=== PATIENT | female | born 1960 | race Caucasian/White ===

== ENCOUNTER 2019-09-05 15:03 | Emergency (ER) | payer MEDICAID ==
[~2019-09-05] VITALS: Ht 157.5 cm; Wt 77.1 kg
[2019-09-05 15:16] VITALS: BP_SYST 153
[2019-09-05] MEDS ORDERED: KETOROLAC TROMETHAMINE 60 MG/2 ML VIAL IM ONE (15:30)
[2019-09-05 16:01] VITALS: BP_SYST 153
== END 2019-09-05 16:00 | disposition home or self-care (01) ==
LOC: SED 15:03
DX: M06.9 Rheumatoid arthritis, unspecified (principal); M25.571 Pain in right ankle and joints of right foot; I10 Essential (primary) hypertension; Z86.73 Personal history of transient ischemic attack (TIA), and cerebral infarction without residual deficits
CPT/HCPCS: 96372; 99283; J1885

== ENCOUNTER 2020-04-12 17:44 | Inpatient (IN) | payer MEDICAID, SELFPAY ==
[~2020-04-12] VITALS: Ht 162.6 cm; Wt 91.2 kg
[~2020-04-12 17:44] MED LIST: ACET-73 PO; AMIO200T6 PO; ASPI-1393 PO; LIP20 PO; METO50TA7 PO; NAPR-690 PO; [UNRECOGNIZED DRUG - CODE] PO
[2020-04-12 17:56] VITALS: BP_SYST 149
--- NOTE | 2020-04-12 18:00 | NUR ---
SENT TO NO BEDS
--- NOTE | 2020-04-12 18:55 | NUR ---
AMBULATED TO BED 4
--- NOTE | 2020-04-12 19:20 | NUR ---
Patient came to ER with family. C/O shortness of breath x today. Patient states "had headache and shortness of breath today afternoon." Patient discharged from hospital last Sunday from same symptoms and low potassium.
--- NOTE | 2020-04-12 19:29 | NUR ---
X-ray at bedside.
--- NOTE | 2020-04-12 19:39 | NUR ---
ER at bedside examining patient.
[2020-04-12] MEDS ORDERED: ASPIRIN 81 MG TAB.CHEW PO ONE (19:45)
--- NOTE | 2020-04-12 19:48 | NUR ---
Blood for labwork drawn from [facility]. Patient tolerated well.
--- NOTE | 2020-04-12 19:56 | NUR ---
Swabs Covid-19 Rapid and PCR and send to lab.
[2020-04-12 19:57] LABS: BASOPHILS # (AUTO) 0.1 K/uL (0.0-0.2); BASOPHILS % (AUTO) 0.9 % (0.0-2.0); EOSINOPHILS # (AUTO) 0.2 K/uL (0.0-0.4); EOSINOPHILS % (AUTO) 2.9 % (0.0-4.0); HEMATOCRIT 37.2 % (36-48); HEMOGLOBIN 12.7 g/dL (12.0-16.0); LYMPHOCYTES # (AUTO) 2.5 K/uL (1.0-5.5); LYMPHOCYTES % (AUTO) 31.5 % (20.5-51.5); MEAN CORPUSCULAR HEMOGLOBIN 32 pg (27-31); MEAN CORPUSCULAR HGB CONC 34 % (32-36); MEAN CORPUSCULAR VOLUME 93 fL (79.0-98.0); MONOCYTES # (AUTO) 0.4 K/uL (0.0-1.0); MONOCYTES % (AUTO) 4.6 % (1.7-9.3); NEUTROPHILS # (AUTO) 4.8 K/uL (1.8-7.7); NEUTROPHILS % (AUTO) 60.1 % (40.0-70.0); PLATELET COUNT (AUTO) 268 K/uL (130-430); RED BLOOD CELL COUNT(AUTO) 4.01 MIL/uL (4.2-6.2); RED CELL DISTRIBUTION WIDTH 14.5 % (9.0-15.0); WHITE BLOOD COUNT (AUTO) 7.9 K/uL (4.8-10.8)
[2020-04-12] MEDS ORDERED: POTA20TA83 PO (20:05)
--- NOTE | 2020-04-12 20:06 | NUR ---
Medication reconciliation completed with information provided by patient. Any prior medication reconciliation on file was reviewed and corrected.
[2020-04-12 20:14] LABS: ANION GAP 12 (5-15); CALCIUM 9.9 mg/dL (8.4-11.0); CHLORIDE 105 mmol/L (98-107); CREATININE 1.46 mg/dL (0.55-1.30); GLUCOSE 105 mg/dL (70-99); POTASSIUM 3.6 mmol/L (3.5-5.1); SODIUM SERUM 142 mmol/L (136-145); UREA NITROGEN, BLOOD 23 mg/dL (8-21)
[2020-04-12 20:18] LABS: GFR AFRICAN AMERICAN 47 mL/min (>90)
[2020-04-12 20:29] LABS: ALANINE AMINOTRANSFERASE 24 U/L (12-78); ALBUMIN 4.2 g/dL (3.4-4.8); ASPARTATE AMINOTRANSFERASE 24 U/L (10-37); FREE T4 (FREE THYROXINE) 0.6 ng/dl (0.8-1.5); LIPASE 223 U/L (73-393); TOTAL BILIRUBIN 0.5 mg/dL (0.0-1.0)
[2020-04-12 20:55] LABS: BILIRUBIN,DIRECT 0.1 mg/dL (0.0-0.3)
[2020-04-12 21:26] LABS: THYROID STIMULATING HORMONE 148.57 uIu/mL (0.36-3.74)
--- NOTE | 2020-04-13 00:05 | NUR ---
# 20 gauge angiocath placed to RAC. Use of asceptic technique. Opsite placed over site. Blood return noted. Blood for lab drawn from site. Flushed with 10 cc of normal saline. No evidence of infiltration noted. Patient tolerated well.
--- NOTE | 2020-04-13 00:14 | NUR ---
Patient transported to radiology via gurney, accompanied by RT.
--- NOTE | 2020-04-13 00:46 | NUR ---
Returned from radiology, back to [facility].
--- NOTE | 2020-04-13 01:35 | NUR ---
Patient resting quietly. No acute distress noted. Vital signs within normal range.
[2020-04-13] MEDS ORDERED: ALBUTEROL SULFATE 0.083% 2.5 MG/3 ML VIAL.NEB INH PRN (04:45)
--- NOTE | 2020-04-13 05:24 | NUR ---
Patient resting quietly. No acute distress noted.
--- NOTE | 2020-04-13 07:21 | NUR ---
REPORT RECEIVED FROM FRANCK AMARO FOR CONTINUING CARE
--- NOTE | 2020-04-13 07:30 | NUR ---
Patient resting quietly. No acute distress noted. Vital signs within normal range.
--- NOTE | 2020-04-13 08:43 | NUR ---
Dietary called for breakfast tray.
[2020-04-13] MEDS: METOPROLOL SUCCINATE 50 MG TAB.SR.24H (TOPROL XL) PO SCH (09:00)
[2020-04-13] MEDS: ACETAMINOPHEN 500 MG TABLET PO SCH ×3 (09:00→20:33)
--- NOTE | 2020-04-13 09:15 | NUR ---
PT EATING BREAKFAST
[2020-04-13] MEDS: AMIODARONE HCL 200 MG TABLET PO SCH (10:20)
[2020-04-13] MEDS: POTASSIUM CHLORIDE 20 MEQ TAB.PRT.SR PO SCH ×2 (10:21→20:32)
[2020-04-13] MEDS: ASPIRIN 81 MG TABLET(ECOTRIN) PO SCH (10:21)
--- NOTE | 2020-04-13 10:45 | NUR ---
PT SLEEPING IN BED
--- NOTE | 2020-04-13 11:58 | NUR ---
Dietary called for lunch tray.
--- NOTE | 2020-04-13 13:04 | NUR ---
Patient will be admitted to care of DR. CABRERA. Admitted to TELE unit. Will go to room 118B. Belongings list completed. Complete and up to date summary report printed. SBAR report to be given at bedside with opportunity for questions.
--- NOTE | 2020-04-13 13:18 | NUR ---
ADMISSION NOTE Received patient from ER via patricia, received report from Chiquis JUÁREZ. Patient admitted with diagnosis of SOB. Patient oriented to hospital routine, call light, toileting and safety-patient verbalized understanding.
[2020-04-13] MEDS: ATORVASTATIN 20 MG TABLET PO SCH (13:57)
[2020-04-13 14:03] VITALS: BP_SYST 116
--- NOTE | 2020-04-13 14:08 | NUR ---
CONSULTATION PAGED/CALLED Reason for Consultation: A-FIB Person Who was Notified: SMITH Consulting Physician: JACKSON Tearer Specialty: CARDIO Ordering Physician: DEBORAH
[2020-04-13 16:11] VITALS: BP_SYST 92
--- NOTE | 2020-04-13 16:40 | NUR ---
RN round: Patient is resting on bed comfortable, no sign of distress.
[2020-04-13 16:50] VITALS: BP_SYST 92
--- NOTE | 2020-04-13 18:26 | NUR ---
Cardio round: Dr. Hodge makes round for the consult.
--- NOTE | 2020-04-13 18:33 | NUR ---
Closing note: Patient is stable no sign of distress. Tolerated Cardiac diet well.
--- NOTE | 2020-04-13 19:30 | NUR ---
OPENING NOTE RECEIVED CARE OF PT AND SBAR REPORT. PT IS AAOX4, RESTING IN BED, NO S/S OF ACUTE DISTRESS, BREATHING IS EVEN AND UNLABORED TO ROOM AIR. SAFETY AND ISOLATION PRECAUTIONS MAINTAINED. WILL MONITOR.
[2020-04-13 20:32] VITALS: BP_SYST 101
[2020-04-14 00:28] VITALS: BP_SYST 96
--- NOTE | 2020-04-14 06:50 | NUR ---
CLOSING NOTE PT RESTING IN BED, NO S/S OF ACUTE DISTRESS, BREATHING IS EVEN AND UNLABORED TO ROOM AIR, SAFETY AND ISOLATION PRECAUTIONS MAINTAINED. WILL ENDORSE TO DAY SHIFT RN.
[2020-04-14] MEDS ORDERED: LEVOTHYROXINE SODIUM 0.05 MG TABLET PO SCH (07:00)
--- NOTE | 2020-04-14 08:00 | NUR ---
OPENING NOTES: PT IS AAOX4, RESTING IN BED, NO S/S OF ACUTE DISTRESS, BREATHING IS EVEN AND UNLABORED TO ROOM AIR. SAFETY AND ISOLATION PRECAUTIONS MAINTAINED. WILL MONITOR.
[2020-04-14 08:35] VITALS: BP_SYST 138
--- NOTE | 2020-04-14 10:00 | NUR ---
MD CABRERA MADE ROUNDS, SEEN AND EXAMINED PATIENT AND DISCUSS ABOUT THE POC. INFORMED COVID RESULT NEGATIVE. MD CLEARY ( [facility]) INFORMED AND RECEIVED D/C ISOLATION PRECAUTION.
[2020-04-14 10:09] LABS: CALCIUM 8.8 mg/dL (8.4-11.0); CREATININE 1.35 mg/dL (0.55-1.30); POTASSIUM 3.7 mmol/L (3.5-5.1)
[2020-04-14] MEDS: AMIODARONE HCL 200 MG TABLET PO SCH (10:10)
[2020-04-14] MEDS: POTASSIUM CHLORIDE 20 MEQ TAB.PRT.SR PO SCH (10:10)
[2020-04-14] MEDS: ASPIRIN 81 MG TABLET(ECOTRIN) PO SCH (10:10)
[2020-04-14] MEDS: ATORVASTATIN 20 MG TABLET PO SCH (10:10)
[2020-04-14] MEDS: ACETAMINOPHEN 500 MG TABLET PO SCH (10:12)
[2020-04-14] MEDS: METOPROLOL SUCCINATE 50 MG TAB.SR.24H (TOPROL XL) PO SCH (10:12)
[2020-04-14 10:15] LABS: ALBUMIN 3.9 g/dL (3.4-4.8); TOTAL BILIRUBIN 0.4 mg/dL (0.0-1.0)
[2020-04-14] MEDS ORDERED: SYN50 PO (11:51)
[2020-04-14 13:18] VITALS: BP_SYST 121
[2020-04-14 13:27] VITALS: BP_SYST 121
--- NOTE | 2020-04-14 14:10 | NUR ---
DISCHARGE APPOINTMENT SW DAUGHTER FARZANEH DODSON WHO DOESNT REMEMBER HER MOTHER'S CLOTHING ROOM SUPERVISOR. PATIENT HAD A PACEMAKER PLACEMENT A YEAR AGO. PATIENT ALSO CANNOT REMEMBER NAME. REFUSED FOR STAFF TO MAKE FOLLOW UP APPOINTMENT. DAUGHTER STATED SHE WILL CALL FOR THE APPOINTMENT AND WILL MAKE SURE WITHIN 7 DAYS
--- NOTE | 2020-04-14 14:18 | NUR ---
D/C Patient Patient given medication reconciliation form and D/C instructions. Exit Care provided. Patient verbalized understanding. MD discussed with patient the results and treatment provided. Ambulatory with steady gait for discharge to home. Patient in stable condition, ID band removed. IV catheter removed, intact and dressing applied, no active bleeding. Patient educated on pain management. All belongings sent with patient.VSS, AFEBRILE. NO OTHER CONCERNED NOTED.
== END 2020-04-14 14:20 | disposition home or self-care (01) | DRG 194 ==
LOC: SED 17:44 → STU 04-13 04:38
PROVIDERS: ADMIT Internal Medicine Hospice and Palliative Medicine; ATTEND Internal Medicine Hospice and Palliative Medicine
DX: I13.0 Hypertensive heart and chronic kidney disease with heart failure and stage 1 through stage 4 chronic kidney disease, or unspecified chronic kidney disease (principal); I50.9 Heart failure, unspecified; I42.9 Cardiomyopathy, unspecified; N17.9 Acute kidney failure, unspecified; E03.9 Hypothyroidism, unspecified; E66.9 Obesity, unspecified; Z20.828 Contact with and (suspected) exposure to other viral communicable diseases; I25.2 Old myocardial infarction; Z95.810 Presence of automatic (implantable) cardiac defibrillator; Z79.1 Long term (current) use of non-steroidal anti-inflammatories (NSAID); Z79.899 Other long term (current) drug therapy; Z86.74 Personal history of sudden cardiac arrest; Z68.34 Body mass index [BMI] 34.0-34.9, adult; Z79.890 Hormone replacement therapy; Z87.891 Personal history of nicotine dependence; Z91.19 Patient's noncompliance with other medical treatment and regimen; N18.30 Chronic kidney disease, stage 3 unspecified
CPT/HCPCS: 36415; 71045; 78580-TC; 80048; 80053; 80076; 83690-TC; 83735-TC; 83880; 84439; 84443-TC; 84484; 85025; 85379; 87081; 93005; 99285; A9540; G0378; U0003

== ENCOUNTER 2020-06-11 13:19 | Emergency (ER) | payer MEDICAID, SELFPAY ==
[~2020-06-11] VITALS: Ht 162.6 cm; Wt 89.4 kg
[~2020-06-11 13:19] MED LIST changes: +POTA20TA83 PO; +SYN50 PO
[2020-06-11 13:20] VITALS: BP_SYST 166
[2020-06-11 13:46] VITALS: BP_SYST 138
[2020-06-11] MEDS ORDERED: PRED20TA PO (13:47)
[2020-06-11] MEDS ORDERED: IBUP-1971 PO (13:47)
== END 2020-06-11 13:44 | disposition home or self-care (01) ==
LOC: SED 13:19
DX: R05 Cough (principal); I10 Essential (primary) hypertension; Z20.822 Contact with and (suspected) exposure to COVID-19; Z86.73 Personal history of transient ischemic attack (TIA), and cerebral infarction without residual deficits; Z95.0 Presence of cardiac pacemaker; Z79.899 Other long term (current) drug therapy; Z79.82 Long term (current) use of aspirin
CPT/HCPCS: 99283; C9803; U0003

== ENCOUNTER 2021-10-23 10:20 | Inpatient (IN) | payer OTHER, MEDICAID ==
[~2021-10-23] VITALS: Ht 162.6 cm; Wt 88.5 kg
[2021-10-23 10:20] VITALS: BP_SYST 157
[~2021-10-23 10:20] MED LIST changes: -ACET-73 PO; -NAPR-690 PO; +POTA-197 PO; -POTA20TA83 PO
--- NOTE | 2021-10-23 10:20 | NUR ---
TRIAGED IN AMBULANCE AND SEEN BY DR HARDEN ON AMBULANCE RAMP. PLACED TO TRIAGE TENT, AWAITING ER BED AVAILABILITY
--- NOTE | 2021-10-23 10:40 | NUR ---
PT STATES NAUSEA, VOMITING AND HEADACHES SINCE THIS AM, STATES SHE HAS BEEN DIZZY RECENTLY, DENIES COUGH OR FEVER, BUT SHE SAYS SHE HAS CHILLS. PT IS NOT VACCINATED FOR COVID AND NO RECENT TESTING.
[2021-10-23] MEDS ORDERED: MECLIZINE HCL 25 MG TABLET (ANITVERT) PO ONE (10:45)
[2021-10-23] MEDS ORDERED: METOCLOPRAMIDE HCL 10 MG/2 ML VIAL IVP ONE (10:45)
[2021-10-23 11:30] LABS: BASOPHILS # (AUTO) 0.1 K/uL (0.0-0.2); BASOPHILS % (AUTO) 0.3 % (0.0-2.0); EOSINOPHILS % (AUTO) 0.1 % (0.0-4.0); HEMATOCRIT 40.8 % (36-48); HEMOGLOBIN 13.8 g/dL (12.0-16.0); LYMPHOCYTES # (AUTO) 0.7 K/uL (1.0-5.5); LYMPHOCYTES % (AUTO) 4.5 % (20.5-51.5); MEAN CORPUSCULAR HEMOGLOBIN 33 pg (27-31); MEAN CORPUSCULAR HGB CONC 34 % (32-36); MEAN CORPUSCULAR VOLUME 98 fL (79.0-98.0); MONOCYTES # (AUTO) 0.6 K/uL (0.0-1.0); MONOCYTES % (AUTO) 4.2 % (1.7-9.3); NEUTROPHILS % (AUTO) 90.9 % (40.0-70.0); PLATELET COUNT (AUTO) 210 K/uL (130-430); RED BLOOD CELL COUNT(AUTO) 4.17 MIL/uL (4.2-6.2); RED CELL DISTRIBUTION WIDTH 12.8 % (9.0-15.0); WHITE BLOOD COUNT (AUTO) 15.5 K/uL (4.8-10.8)
[2021-10-23 11:43] LABS: ANION GAP 13 (5-15); CALCIUM 8.3 mg/dL (8.4-11.0); CHLORIDE 100 mmol/L (98-107); CREATININE 1.52 mg/dL (0.55-1.30); GLUCOSE 132 mg/dL (70-99); POTASSIUM 3.3 mmol/L (3.5-5.1); SODIUM SERUM 135 mmol/L (136-145); UREA NITROGEN, BLOOD 15 mg/dL (8-21)
[2021-10-23 11:48] LABS: GFR AFRICAN AMERICAN 45 mL/min (>90)
[2021-10-23 11:55] LABS: ALANINE AMINOTRANSFERASE 60 U/L (12-78); ALBUMIN 3.7 g/dL (3.4-4.8); ASPARTATE AMINOTRANSFERASE 52 U/L (10-37); TOTAL BILIRUBIN 0.9 mg/dL (0.0-1.0)
--- NOTE | 2021-10-23 12:50 | NUR ---
BROUGHT IN FROM TRIAGE TENT AND REPORT GIVEN TO
[2021-10-23] MEDS ORDERED: MECLIZINE HCL 25 MG TABLET (ANITVERT) ONE (13:54)
[2021-10-23] MEDS ORDERED: METOCLOPRAMIDE HCL 10 MG/2 ML VIAL ONE (13:55)
--- NOTE | 2021-10-23 15:10 | NUR ---
Notified ED Admitting regarding Dr. Lebron's request for admission/transfer. Per Dr. Lebron, pt is stable for transfer. Will contact assurance manager insurance regarding this matter. PER FACESHEET: [place]/ [facility]
--- NOTE | 2021-10-23 15:22 | NUR ---
Spoke to Ryley, insurance case technician, gave update on clinical info and Ryley stated the coupon clerk doctor will call back to speak to Dr. Lebron
[2021-10-23] MEDS ORDERED: cefTRIAXone 1 GM in D5W 50 ML IV ONE (15:30)
[2021-10-23] MEDS ORDERED: guaiFENesin/DEXTROMETHORPHAN 10 ML UDC PO PRN (15:45)
[2021-10-23] MEDS ORDERED: MORPHINE 2 MG/ML INJ. SYRINGE IVP PRN (15:45)
[2021-10-23] MEDS ORDERED: ZOLPIDEM TARTRATE 5 MG TABLET PO PRN (15:45)
[2021-10-23] MEDS ORDERED: DOCUSATE SODIUM 100 MG/10 ML UDC PO PRN (15:45)
[2021-10-23] MEDS ORDERED: ONDANSETRON HCL 4 MG/2 ML VIAL IVP PRN (15:45)
[2021-10-23 15:49] LABS: BILIRUBIN,URINE NEGATIVE (NEGATIVE); CLARITY/URINE CLEAR (CLEAR); COLOR,URINE YELLOW (YELLOW); GLUCOSE,URINE NEGATIVE (NEGATIVE); KETONES,URINE NEGATIVE (NEGATIVE); LEUKOCYTE ESTERASE ,URINE 1+ (NEGATIVE); NITRITE, URINE NEGATIVE (NEGATIVE); PROTEIN URINE NEGATIVE (NEGATIVE); UROBILINOGEN,URINE 0.2 (0.2-1.0)
[2021-10-23] MEDS ORDERED: cefTRIAXone 1 GM in LIDOCAINE 1%, 20 ML MDV 2.1 ML IM ONE (16:00)
[2021-10-23] MEDS ORDERED: cefTRIAXone 1 GM VIAL ONE (16:05)
[2021-10-23] MEDS: NACL 0.9% 1,000 ML IV SCH ×2 (16:11→23:47)
[2021-10-23] MEDS ORDERED: TAMSULOSIN HCL 0.4 MG CAP PO ONE (16:15)
[2021-10-23 16:16] LABS: BLOOD, URINE TRACE (NEGATIVE)
[2021-10-23 16:45] LABS: FREE T4 (FREE THYROXINE) 1.3 ng/dl (0.8-1.5); PHOSPHORUS 4.5 mg/dL (2.7-4.5); THYROID STIMULATING HORMONE 2.26 uIu/mL (0.36-3.74)
--- NOTE | 2021-10-23 17:08 | NUR ---
Received patient from emergency room, FRANCK Lay, in bed resting comfortably, AAOX4. No s/sx pain or discomfort. Respirations are non-labored. Skin is clean, warm and dry to touch. IV access is patent, no s/sx of redness or swelling observed. Bed is locked in lowest position, call light in reach. Nurse will continue care and monitor for changes in status.
--- NOTE | 2021-10-23 17:12 | NUR ---
CONSULT: NEPHRO NEPHRO DR. JOY [phone] S/W:JAZLYN CARR
[2021-10-23 17:43] LABS: BACTERIA,URINE FEW /HPF (None Seen); RBC,URINE 0-3 /HPF (0-3)
[2021-10-23 17:44] LABS: MUCUS,URINE None Seen /LPF (None Seen)
[2021-10-23 18:16] LABS: PROTHROMBIN TIME 10.3 SECS (9.5-12.5)
--- NOTE | 2021-10-23 18:52 | NUR ---
Patient in bed resting comfortably. No s/sx pain or discomfort. Respirations are non-labored. Skin is clean,warm and dry to touch. IV access is patent, dry and secure, no s/sx of redness or swelling observed. Patient medication compliant, no s/sx of adverse affects reported or observed. Bed is locked in lowest position, call light in reach. Nurse will endorse patient to machinist 2nd shift nurse for continue care.
[2021-10-23 20:00] VITALS: BP_SYST 140
[2021-10-24 02:03] VITALS: BP_SYST 138
[2021-10-24 05:38] LABS: BASOPHILS # (AUTO) 0.1 K/uL (0.0-0.2); BASOPHILS % (AUTO) 1.5 % (0.0-2.0); EOSINOPHILS % (AUTO) 0.2 % (0.0-4.0); HEMATOCRIT 36.3 % (36-48); HEMOGLOBIN 12.5 g/dL (12.0-16.0); MEAN CORPUSCULAR HEMOGLOBIN 34 pg (27-31); MEAN CORPUSCULAR HGB CONC 35 % (32-36); MEAN CORPUSCULAR VOLUME 98 fL (79.0-98.0); MONOCYTES # (AUTO) 0.4 K/uL (0.0-1.0); MONOCYTES % (AUTO) 4.8 % (1.7-9.3); NEUTROPHILS # (AUTO) 7.4 K/uL (1.8-7.7); NEUTROPHILS % (AUTO) 82.5 % (40.0-70.0); PLATELET COUNT (AUTO) 177 K/uL (130-430); RED BLOOD CELL COUNT(AUTO) 3.69 MIL/uL (4.2-6.2)
--- NOTE | 2021-10-24 07:50 | NUR ---
CONSULTATION PAGED/CALLED Reason for Consultation: [] URINARY RETENTION Person Who was Notified: [] DR CRUZ Consulting Physician: [] DR Jennifer CRUZ Global Expansion Sales Director Specialty: [] UROLOGY Ordering Physician: [] Ara MCLEOD
[2021-10-24 08:00] VITALS: BP_SYST 137
--- NOTE | 2021-10-24 08:00 | NUR ---
RECEIVED IN BED AWAKE A/OX4 ASSESSMENT COMPLETED PLAN OF CARE REVIEWED CALL LIGHT IN REACH
[2021-10-24 08:14] LABS: CALCIUM 7.4 mg/dL (8.4-11.0); CREATININE 1.36 mg/dL (0.55-1.30); POTASSIUM 3.1 mmol/L (3.5-5.1)
[2021-10-24] MEDS: HYDROcodone/ACETAMIN 7.5-325 MG TAB PO PRN ×2 (08:38→21:13)
[2021-10-24] MEDS: TAMSULOSIN HCL 0.4 MG CAP PO SCH (08:39)
[2021-10-24] MEDS: PANTOPRAZOLE SODIUM 40 MG TAB PO SCH (08:39)
[2021-10-24] MEDS: NACL 0.9% 1,000 ML IV SCH ×3 (08:39→21:13)
[2021-10-24] MEDS ORDERED: POTASSIUM CHLORIDE 20 MEQ TAB.PRT.SR PO PRN (09:00)
--- NOTE | 2021-10-24 12:30 | NUR ---
NO NO CHANGES NOTED AT THIS TIME WILL CONTINUE TO MONITOR AND ASSESS
[2021-10-24] MEDS ORDERED: cefTRIAXone 1 GM in LIDOCAINE 1%, 20 ML MDV 2.1 ML IM SCH (14:00)
[2021-10-24] MEDS: CEFTRIAXONE SOD 1 GM/ D5W 50 ML IV SCH ×2 (15:17)
[2021-10-24 16:00] VITALS: BP_SYST 140
--- NOTE | 2021-10-24 16:57 | NUR ---
ALL NEEDS ANTICIPATED AND MET
[2021-10-24] MEDS: ACETAMINOPHEN 500 MG TABLET PO PRN ×2 (18:17→23:26)
--- NOTE | 2021-10-24 18:27 | NUR ---
PT COMPLAINED OF HEADACHE BP 158/71 TYLENOL GIVEN ORDERED NO ACUTE DISTRESS NOTED AT THIS TIME
--- NOTE | 2021-10-24 19:20 | NUR ---
K 3.1 REPLACED WITH KCL 40MEQ PO
[2021-10-24 20:00] VITALS: BP_SYST 135
--- NOTE | 2021-10-24 20:00 | NUR ---
OPENING NOTE Pt AAOx4, VSS, afebrile. IVF infusing with no s/s infiltration. Pt c/o of H/A pain 11/13, will medicate as needed. Pt able to verbalize her needs Call light within reach. Bed low, locked, siderails up and all safety precautions are in place.
--- NOTE | 2021-10-24 22:15 | NUR ---
PAIN MEDS PT REQUESTED AND WAS GIVEN HER NORCO. PT RATES HER H/A PAIN A 12/14
--- NOTE | 2021-10-24 22:30 | NUR ---
PAIN MEDS PT REQUESTED AND WAS GIVEN HER TYLENOL. PT RATES HER H/A PAIN A 5/10
--- NOTE | 2021-10-25 00:13 | NUR ---
PAIN MEDS PT REQUESTED AND WAS GIVEN HER TYLENOL. PT RATES H/A PAIN A 5/10
[2021-10-25] MEDS: HYDROcodone/ACETAMIN 7.5-325 MG TAB PO PRN ×4 (01:23→18:52)
--- NOTE | 2021-10-25 01:30 | NUR ---
PAIN MEDS PT REQUESTED AND WAS GIVEN HER NORCO. PT RATES HER PAIN IN HER ABD A PAIN A 7/10
[2021-10-25 06:42] LABS: BASOPHILS % (AUTO) 0.5 % (0.0-2.0); EOSINOPHILS # (AUTO) 0.1 K/uL (0.0-0.4); EOSINOPHILS % (AUTO) 2.5 % (0.0-4.0); HEMATOCRIT 33.8 % (36-48); HEMOGLOBIN 11.6 g/dL (12.0-16.0); LYMPHOCYTES # (AUTO) 0.9 K/uL (1.0-5.5); LYMPHOCYTES % (AUTO) 16.5 % (20.5-51.5); MEAN CORPUSCULAR HEMOGLOBIN 34 pg (27-31); MEAN CORPUSCULAR HGB CONC 34 % (32-36); MEAN CORPUSCULAR VOLUME 99 fL (79.0-98.0); MONOCYTES # (AUTO) 0.4 K/uL (0.0-1.0); MONOCYTES % (AUTO) 6.6 % (1.7-9.3); NEUTROPHILS # (AUTO) 4.1 K/uL (1.8-7.7); NEUTROPHILS % (AUTO) 73.9 % (40.0-70.0); PLATELET COUNT (AUTO) 163 K/uL (130-430); RED BLOOD CELL COUNT(AUTO) 3.44 MIL/uL (4.2-6.2); WHITE BLOOD COUNT (AUTO) 5.5 K/uL (4.8-10.8)
[2021-10-25 06:59] LABS: CALCIUM 7.2 mg/dL (8.4-11.0); CREATININE 1.02 mg/dL (0.55-1.30); POTASSIUM 3.2 mmol/L (3.5-5.1)
[2021-10-25] MEDS: NACL 0.9% 1,000 ML IV SCH (07:45)
--- NOTE | 2021-10-25 08:30 | NUR ---
Dr. Corwin Dunham at bedside. Requested to call primary MD to consult OBGYN. Communicated to Charge Nurse.Per charge nurse primary MD notified. Primary MD on unit.
--- NOTE | 2021-10-25 09:44 | NUR ---
CONSULTATION PAGED/CALLED Reason for Consultation: []sepsis Person Who was Notified: []Elizabeth Consulting Physician: [] Dr. Elver Rudolph Vp Medical Specialty: [] OB Requesting Physician Dr. Morales
[2021-10-25] MEDS: TAMSULOSIN HCL 0.4 MG CAP PO SCH (11:12)
[2021-10-25] MEDS: POTASSIUM CHLORIDE 20 MEQ TAB.PRT.SR PO SCH (11:12)
[2021-10-25] MEDS: PANTOPRAZOLE SODIUM 40 MG TAB PO SCH (11:12)
[2021-10-25 12:00] VITALS: BP_SYST 130
[2021-10-25 18:00] VITALS: BP_SYST 128
[2021-10-25] MEDS: CEFTRIAXONE SOD 1 GM/ D5W 50 ML IV SCH ×2 (18:52)
[2021-10-25 20:00] VITALS: BP_SYST 133
[2021-10-26 00:17] VITALS: BP_SYST 135
[2021-10-26] MEDS: LEVOTHYROXINE SODIUM 0.075 MG TABLET PO SCH (06:03)
[2021-10-26 06:41] LABS: BASOPHILS % (AUTO) 0.7 % (0.0-2.0); EOSINOPHILS # (AUTO) 0.2 K/uL (0.0-0.4); EOSINOPHILS % (AUTO) 4.1 % (0.0-4.0); HEMATOCRIT 34.1 % (36-48); HEMOGLOBIN 11.8 g/dL (12.0-16.0); LYMPHOCYTES % (AUTO) 20.4 % (20.5-51.5); MEAN CORPUSCULAR HEMOGLOBIN 34 pg (27-31); MEAN CORPUSCULAR HGB CONC 35 % (32-36); MEAN CORPUSCULAR VOLUME 99 fL (79.0-98.0); MONOCYTES # (AUTO) 0.4 K/uL (0.0-1.0); MONOCYTES % (AUTO) 7.1 % (1.7-9.3); NEUTROPHILS # (AUTO) 3.4 K/uL (1.8-7.7); NEUTROPHILS % (AUTO) 67.7 % (40.0-70.0); PLATELET COUNT (AUTO) 183 K/uL (130-430); RED BLOOD CELL COUNT(AUTO) 3.45 MIL/uL (4.2-6.2); RED CELL DISTRIBUTION WIDTH 12.9 % (9.0-15.0)
[2021-10-26 07:50] LABS: CALCIUM 7.5 mg/dL (8.4-11.0); CREATININE 1.11 mg/dL (0.55-1.30); POTASSIUM 3.6 mmol/L (3.5-5.1)
[2021-10-26 08:00] VITALS: BP_SYST 122
[2021-10-26] MEDS: ASPIRIN 81 MG TABLET(ECOTRIN) PO SCH (09:24)
[2021-10-26] MEDS: PANTOPRAZOLE SODIUM 40 MG TAB PO SCH (09:25)
[2021-10-26] MEDS: POTASSIUM CHLORIDE 20 MEQ TAB.PRT.SR PO SCH ×2 (09:25→20:35)
[2021-10-26] MEDS: TAMSULOSIN HCL 0.4 MG CAP PO SCH (09:26)
[2021-10-26] MEDS: ATORVASTATIN 20 MG TABLET PO SCH (09:26)
[2021-10-26] MEDS: NACL 0.9% 1,000 ML IV SCH ×2 (09:27→11:54)
[2021-10-26] MEDS: METOPROLOL SUCCINATE 50 MG TAB.SR.24H (TOPROL XL) PO SCH (09:28)
[2021-10-26] MEDS: AMIODARONE HCL 200 MG TABLET PO SCH (09:29)
[2021-10-26 12:00] VITALS: BP_SYST 120
[2021-10-26 16:00] VITALS: BP_SYST 122
[2021-10-26] MEDS: CEFTRIAXONE SOD 1 GM/ D5W 50 ML IV SCH ×2 (16:00)
--- NOTE | 2021-10-26 19:40 | NUR ---
INITIAL NOTE AT INITIAL ASSESSMENT, PATIENT IS RESTING IN BED, STABLE, NO SIGNS OF RESPIRATORY DISTRESS. PATIENT VERBALIZES NO PAIN. PLAN OF CARE FOR THE EVENING IS COMMUNICATED TO PATIENT. PATIENT DEMONSTRATES CORRECT USAGE OF CALL LIGHT AT THIS TIME. BED IS LOCKED, ALARMED, AND AT THE LOWEST LEVEL. FALL, SAFETY, RESPIRATORY, AND ASPIRATION PRECAUTIONS WILL BE TAKEN THROUGHOUT THE NIGHT.
[2021-10-26 20:00] VITALS: BP_SYST 145
--- NOTE | 2021-10-26 22:15 | NUR ---
FAMILY CALLED RETURNED PATIENT'S DAUGHTER MINERVA'S PHONE CALL. [phone] CALLED, VOICEMAIL LEFT WITH CALL BACK NUMBER.
[2021-10-27 00:16] VITALS: BP_SYST 132
[2021-10-27 06:37] LABS: BASOPHILS % (AUTO) 0.8 % (0.0-2.0); EOSINOPHILS # (AUTO) 0.2 K/uL (0.0-0.4); EOSINOPHILS % (AUTO) 3.6 % (0.0-4.0); HEMATOCRIT 35.2 % (36-48); HEMOGLOBIN 12.2 g/dL (12.0-16.0); LYMPHOCYTES # (AUTO) 1.1 K/uL (1.0-5.5); LYMPHOCYTES % (AUTO) 22.6 % (20.5-51.5); MEAN CORPUSCULAR HEMOGLOBIN 34 pg (27-31); MEAN CORPUSCULAR HGB CONC 35 % (32-36); MEAN CORPUSCULAR VOLUME 97 fL (79.0-98.0); MONOCYTES # (AUTO) 0.4 K/uL (0.0-1.0); MONOCYTES % (AUTO) 8.5 % (1.7-9.3); NEUTROPHILS # (AUTO) 3.1 K/uL (1.8-7.7); NEUTROPHILS % (AUTO) 64.5 % (40.0-70.0); PLATELET COUNT (AUTO) 207 K/uL (130-430); RED BLOOD CELL COUNT(AUTO) 3.62 MIL/uL (4.2-6.2); RED CELL DISTRIBUTION WIDTH 12.9 % (9.0-15.0); WHITE BLOOD COUNT (AUTO) 4.9 K/uL (4.8-10.8)
[2021-10-27] MEDS: LEVOTHYROXINE SODIUM 0.075 MG TABLET PO SCH (06:44)
[2021-10-27 06:46] LABS: CALCIUM 7.9 mg/dL (8.4-11.0); CREATININE 1.13 mg/dL (0.55-1.30)
--- NOTE | 2021-10-27 06:55 | NUR ---
CLOSING NOTE NO CHANGES. PATIENT SLEPT WELL DURING THE NIGHT. PATIENT SLEPT WELL THROUGHOUT THE NIGHT. BED IS LOCKED, ALARMED, AND AT THE LOWEST LEVEL. FALL, AND SAFETY PRECAUTIONS HAVE BEEN TAKEN THROUGHOUT THE SHIFT.
--- NOTE | 2021-10-27 07:11 | NUR ---
CONSULTATION PAGED/CALLED Reason for Consultation: [] UTERINE PROLAPSE Person Who was Notified: [] DR NGUYEN Consulting Physician: [] DR Liza NGUYEN Wire Drawing Machine Operator Specialty: [] OBGYN Ordering Physician: [] DR DEBORAH NGUYEN, OBGYN WILL SEE PT BY NOON TIME.
[2021-10-27] MEDS: NACL 0.9% 1,000 ML IV SCH (07:54)
[2021-10-27 08:00] VITALS: BP_SYST 124
[2021-10-27] MEDS ORDERED: POTASSIUM CHLORIDE 20 MEQ/PKT PACKET PO ONE (09:00)
[2021-10-27] MEDS: ASPIRIN 81 MG TABLET(ECOTRIN) PO SCH (09:34)
[2021-10-27] MEDS: METOPROLOL SUCCINATE 50 MG TAB.SR.24H (TOPROL XL) PO SCH (09:35)
[2021-10-27] MEDS: AMIODARONE HCL 200 MG TABLET PO SCH (09:35)
[2021-10-27] MEDS: PANTOPRAZOLE SODIUM 40 MG TAB PO SCH (09:35)
[2021-10-27] MEDS: POTASSIUM CHLORIDE 20 MEQ TAB.PRT.SR PO SCH ×2 (09:35→21:23)
[2021-10-27] MEDS: TAMSULOSIN HCL 0.4 MG CAP PO SCH (09:36)
[2021-10-27] MEDS: ATORVASTATIN 20 MG TABLET PO SCH (09:39)
[2021-10-27 12:00] VITALS: BP_SYST 130
[2021-10-27 16:00] VITALS: BP_SYST 133
[2021-10-27] MEDS: CEFTRIAXONE SOD 1 GM/ D5W 50 ML IV SCH ×2 (16:00)
[2021-10-27 22:10] VITALS: BP_SYST 125
--- NOTE | 2021-10-27 22:30 | NUR ---
DISCHARGED NOTE PT SEEN BY DR. VIDAL AND D/C HOME TO SELF, ALL BELONGINGS AND VALUABLE LEFT WITH PATIENT, IV LINE DC'D, D/C INSTRUCTIONS GIVEN AND SIGNED BY PT, EDUCATED PT TO FOLLOW UP WITH OBGYN WITHIN 1 WEEK, PT VERBALIZED UNDERSTANDING, PT LEFT THE UNIT IN STABLE CONDITION.
== END 2021-10-27 22:30 | disposition home or self-care (01) | DRG 690 ==
LOC: SED 10:20 → SMU 15:40
PROVIDERS: ADMIT Internal Medicine Hospice and Palliative Medicine; ATTEND Internal Medicine Hospice and Palliative Medicine
DX: N13.6 Pyonephrosis (principal); I42.9 Cardiomyopathy, unspecified; N17.0 Acute kidney failure with tubular necrosis; I10 Essential (primary) hypertension; E87.6 Hypokalemia; E78.5 Hyperlipidemia, unspecified; E86.9 Volume depletion, unspecified; E78.00 Pure hypercholesterolemia, unspecified; E03.9 Hypothyroidism, unspecified; E83.42 Hypomagnesemia; N81.89 Other female genital prolapse; Z20.822 Contact with and (suspected) exposure to COVID-19; M06.9 Rheumatoid arthritis, unspecified; N81.3 Complete uterovaginal prolapse; Z95.810 Presence of automatic (implantable) cardiac defibrillator; Z90.49 Acquired absence of other specified parts of digestive tract; Z87.891 Personal history of nicotine dependence; Z79.899 Other long term (current) drug therapy; Z79.82 Long term (current) use of aspirin
CPT/HCPCS: 36415; 70450-TC; 71045; 76376; 80048; 80053; 80061; 81000; 82150; 83036; 83605; 83690; 83735; 83880; 84100; 84439; 84443; 84484; 85025; 85610-TC; 85730-TC; 87040; 87086; 93005; 96374; 96375; 99285; J0696; J2765; J7060; J8597